=== PATIENT | female | born 1990 | race Caucasian/White ===

== ENCOUNTER 2016-11-30 20:02 | Emergency (ER) | payer BC ==
[~2016-11-30] VITALS: Ht 165.1 cm; Wt 123.3 kg
[2016-11-30 20:07] VITALS: BP 137/85
[2016-11-30] MEDS ORDERED: ALBUTEROL/IPRATROPIUM 2.5MG/0.5MG, 3 ML NPPB ONE (20:30)
[2016-11-30] MEDS ORDERED: ALBUTEROL/IPRATROPIUM 2.5MG/0.5MG, 3 ML ONE (20:46)
== END 2016-11-30 21:23 | disposition home or self-care (01) ==
LOC: ED 21:17
DX: J45.31 Mild persistent asthma with (acute) exacerbation (principal); Z90.49 Acquired absence of other specified parts of digestive tract
CPT/HCPCS: 71020; 99284

== ENCOUNTER 2017-05-03 04:32 | Emergency (ER) | payer BC, OTHER ==
[~2017-05-03] VITALS: Ht 165.1 cm; Wt 125.3 kg
[2017-05-03 04:34] VITALS: BP 154/98
[2017-05-03] MEDS ORDERED: ALBUTEROL/IPRATROPIUM 2.5MG/0.5MG, 3 ML ONE ×2 (05:08→05:22)
[2017-05-03] MEDS: ALBUTEROL/IPRATROPIUM 2.5MG/0.5MG, 3 ML NPPB SCH ×2 (05:19→05:25)
[2017-05-03 05:48] LABS: RAPID INFLUENZA A Negative (Negative); RAPID INFLUENZA B Negative (Negative)
[2017-05-03] MEDS ORDERED: KETOROLAC 30 MG/1 ML IVPush ONE (06:00)
[2017-05-03] MEDS ORDERED: KETOROLAC 30 MG/1 ML ONE (06:05)
== END 2017-05-03 07:25 | disposition home or self-care (01) ==
LOC: ED 05:07
DX: J45.31 Mild persistent asthma with (acute) exacerbation (principal); J00 Acute nasopharyngitis [common cold]
CPT/HCPCS: 71046; 87400; 93005; 94640; 96374; 99285; J1885; J7512; J7620

== ENCOUNTER 2018-10-19 22:11 | Emergency (ER) | payer OTHER ==
[~2018-10-19] VITALS: Ht 165.1 cm; Wt 130.4 kg
[2018-10-19 22:15] VITALS: BP 150/103
--- NOTE | 2018-10-19 22:23 | NUR ---
Pt given urine cup and medicated with Zofran, pt back to lobby at this time.
[2018-10-19] MEDS ORDERED: ONDANSETRON ODT 4 MG PO ONE (22:30)
--- NOTE | 2018-10-19 22:42 | NUR ---
Urine sample collected and sent to lab.
[2018-10-19 22:57] LABS: MICROSCOPIC NOT IND
[2018-10-19 23:02] LABS: CULTURE INDICATED? NO
[2018-10-20] MEDS ORDERED: ONDANSETRON 2MG/ML, 2ML IVPush ONE
[2018-10-20] MEDS ORDERED: MORPHINE SULFATE 4 MG/ML, 1ML IVPush PRN
[2018-10-20] MEDS ORDERED: FAMOTIDINE 20 MG/2 ML IVP ONE
[2018-10-20] MEDS ORDERED: SODIUM CHLORIDE 0.9% 1,000ML IVBOLUS ONE
[2018-10-20 00:11] LABS: BASOPHILS # (AUTO) 0.06 x10^3/uL (0-0.1); BASOPHILS % (AUTO) 1 % (0-1); EOSINOPHILS # (AUTO) 0.16 x10^3/uL (0-0.4); EOSINOPHILS % (AUTO) 2 % (1-7); LYMPHOCYTES # (AUTO) 3.47 x10^3/uL (1-3.4); LYMPHOCYTES % (AUTO) 34 % (22-44); MD NO; MEAN CORPUSCULAR HEMOGLOBIN 27.9 pg (27.0-34.8); MEAN CORPUSCULAR HGB CONC 32.5 g/dL (32.4-35.8); MEAN CORPUSCULAR VOLUME 85.8 fL (80-100); MEAN PLATELET VOLUME 7.7 fL (7.4-10.4); MONOCYTES # (AUTO) 0.54 x10^3/uL (0.2-0.8); MONOCYTES % (AUTO) 5 % (2-9); NEUTROPHILS # (AUTO) 5.94 x10^3/uL (1.8-6.8); NEUTROPHILS % (AUTO) 58 % (42-75); PLATELET COUNT 361 x10^3/uL (130-400); RED BLOOD COUNT 4.91 x10^6/uL (3.82-5.3); RED CELL DISTRIBUTION WIDTH 13.9 % (9.6-15.2)
[2018-10-20] MEDS ORDERED: ONDANSETRON 2MG/ML, 2ML ONE (00:11)
[2018-10-20] MEDS ORDERED: FAMOTIDINE 20 MG/2 ML ONE (00:12)
[2018-10-20 00:24] LABS: ALANINE AMINOTRANSFERASE 21 U/L (12-78); ALBUMIN 3.5 g/dL (3.4-5.0); ANION GAP 3 mmol/L (5-15); CALCIUM 8.8 mg/dL (8.5-10.1); CHLORIDE 106 mmol/L (98-107); CREATININE 0.92 mg/dL (0.55-1.02)
[2018-10-20 00:28] LABS: ALKALINE PHOSPHATASE 161 U/L (45-117); BILIRUBIN,TOTAL 0.3 mg/dL (0.2-1.0); TOTAL PROTEIN 7.2 g/dL (6.4-8.2)
[2018-10-20] MEDS ORDERED: OMNIPAQUE 350 MG/ML, 100ML BOTTLE ONE (00:45)
--- NOTE | 2018-10-20 00:47 | NUR ---
PT BACK FROM CT SCAN WITH C/O NAUSEA
== END 2018-10-20 02:03 | disposition home or self-care (01) ==
LOC: ED 10-20 01:54
DX: R10.13 Epigastric pain (principal); R10.12 Left upper quadrant pain; R11.2 Nausea with vomiting, unspecified; R19.7 Diarrhea, unspecified; J45.909 Unspecified asthma, uncomplicated; Z90.49 Acquired absence of other specified parts of digestive tract
CPT/HCPCS: 36415; 74177; 80053; 81003; 83690; 84703; 85025; 96361; 96374; 96375; 99284; J2405; J3490; J7030; Q0162; Q9967